=== PATIENT | female | born 1995 | race Caucasian/White ===

== ENCOUNTER 2020-01-27 13:18 | Emergency (ER) | payer BC ==
[2020-01-27 14:15] LABS: Bilirubin Negative (Negative); Blood, Urine Trace (Negative); Clarity Turbid (Clear); Glucose, Urine (Dipstick) Normal (Negative); Leukocyte 25 Leu/uL (Negative); Nitrite Negative (Negative); Protein, Urine (Dipstick) 10 mg/dL (Neg-Trace); Urobilinogen Normal mg/dL (Less than 2)
[2020-01-27 14:16] LABS: Pregnancy Test - Urine (BHCG) Negative (Negative); Pregu Control Background? CLEAR/WHITE (CLR/WHITE); Pregu Control Bar Appear? YES (CONTROL BAR); Specific Gravity 1.023 (1.002-1.036)
[2020-01-27 14:23] LABS: Bacteria/HPF 2+ HPF (None Seen)
[2020-01-27 14:52] LABS: #Basophils 0.1 thou/uL (0.0-0.2); #Eosinphils 0.1 thou/uL (0.0-0.7); #Lymphocytes 2.2 thou/uL (1.20-3.40); #Monocytes 0.9 thou/uL (0.11-0.59); #Neutrophils 8.5 thou/uL (1.40-6.50); %Basophils 0.6 % (0.0-1.0); %Eosinophils 0.8 % (0.0-10.0); %Lymphocytes 18.9 % (21.0-51.0); %Monocytes 7.9 % (0.0-10.0); %Neutrophils 71.8 % (42.0-75.0); Hemoglobin 10.7 g/dL (12.0-16.0); Mean Corpuscular HGB CONC 34.3 g/dL (32.0-36.0); Mean Corpuscular Hemoglobin 30.3 pg (27.0-31.0); Mean Corpuscular Volume 88.2 fL (78.0-98.0); Mean Platelet Volume 8.7 fL (7.4-10.4); Platelet Count 271 thou/uL (130-400); RBC Distribution Width 11.1 % (11.5-14.5); Red Blood Cell (RBC) Count 3.53 mill/uL (4.20-5.40); White Blood Cell (WBC) Count 11.9 thou/uL (4.8-10.8)
--- NOTE | 2020-01-27 14:56 | CT ---
EXAM: CT ABDOMEN AND PELVIS HISTORY: Trauma pain. COMPARISON: None. Procedure: Multiple contiguous axial images were obtained and a CT of the abdomen and pelvis with IV contrast. C oronal reformats were performed. FINDINGS: Lower Chest: within normal limits. Vessels: Normal caliber aorta Heart: Normal heart Abdomen: Portal vein:Patent Gallbladder: No calcified gallstones. Normal caliber wall. Liver: Diffuse hypoattenuation suggesting hepatic steatosis. Irregular hyperdense focus, measuring 4. 4 x 3.0 cm, involving the right hepatic lobe may represent a focal area of fatty sparing versus vascular lesion. Pancreas: within normal limits. Spleen: within normal limits. Adrenals: within normal limits. Kidneys: Symmetric enhancement. No obstructive uropathy. Peritoneum: No ascites or free air, no fluid collection. Bowel: Limited evaluation due to the lack of oral contrast administration. No evidence of bowel obstr uction. Ileocecal junction is unremarkable. Normal caliber appendix. Scattered fecal material in a nondistended, nondilated colon. Mesentery and Retroperitoneum: There are few scattered nonspecific right lower quadrant mesenteric ly mph nodes. Largest lymph node measures approximately 1 cm in the craniocaudal dimension. Abdominal Wall: within normal limits. Pelvis: Reproductive Organs: Uterus and left adnexa are unremarkable. There is mixed attenuation in the right adnexa with evidence of complex fluid. Ovary is difficult to appreciate. Findings may be due to a rupture of a complex or hemorrhagic cyst. Correlate clinically. Pelvis: Complex free fluid in the pelvis is noted. No free air, mass or lymphadenopathy. Bladder: within normal limits. Bones: within normal limits. IMPRESSION: 4. Possible mildly reactive right lower quadrant mesenteric lymph nodes. Correlate for mesenteric lym phadenitis. 1. Nonspecific enhancing focus in the right hepatic lobe which may represent a vascular lesion. Opal r interrogation with nonemergent abdomen MRI. Diffuse hepatic steatosis. 2. Complex fluid in the right hemipelvis which may be of ovarian origin. Correlate for possible ruptu red complex or hemorrhagic cyst. 3. Normal caliber appendix.
[2020-01-27 15:02] LABS: ALT (SGPT) 185 U/L (8-55); AST (SGOT) 167 U/L (5-34); Albumin 4.5 g/dL (3.5-5.0); Alkaline Phosphatase 65 U/L (40-110); Anion Gap 17 mmol/L (10-20); BUN (Urea Nitrogen) 11 mg/dL (7.0-18.7); Bilirubin, Total 0.3 mg/dL (0.2-1.2); Calc. Creatinine Clearance 0 mL/min (70-130); Calcium 9.5 mg/dL (7.8-10.44); Carbon Dioxide 21 mmol/L (22-29); Chloride 103 mmol/L (98-107); Estimated GFR-MDRD Greater than 90; Globulin 3.1 g/dL (2.4-3.5); Glucose 108 mg/dL (70-105); Potassium 4.1 mmol/L (3.5-5.1); Protein, Total 7.6 g/dL (6.0-8.3); Sodium 137 mmol/L (136-145)
[2020-01-27] MEDS ORDERED: Iopamidol 370 76% 100 ML VIAL ONE (15:13)
--- NOTE | 2020-01-27 16:35 | ULT ---
Exam: Transabdominal and endovaginal pelvic ultrasound HISTORY:Abnormal abdomen CT there are complex fluid in the pelvis. Abdominal pain. COMPARISON:None Correlation: Abdomen pelvis CT 01/27/2020 TECHNIQUE: Transabdominal and endovaginal imaging of the pelvis is performed. Ovaries are interrogate d with grayscale, color flow, Doppler imaging and spectral wave form analysis FINDINGS: Uterus: No myometrial masses. Uterus measurin.0 x 2.7 x 3.8 cm. Endometrium: Homogeneous echotexture. Endometrium diameter: 0.4 cm. Free fluid: Free fluid in the cul-de-sac and right adnexa Right ovary: Hypoechoic focus with central anechoic echotexture, measuring 1.1 x 1.0 x 2.5 cm. Right ovary measurement: 4.4 x 2.5 x 2.2 cm Left ovary: Normal echotexture. Left ovary measurements: 2.4 x 1.4 x 1.5 cm Ovarian Doppler: There is vascular flow in the left ovary as well as along the peripheral soft tissue echotexture in t he right adnexa. No vascular flow in the central anechoic focus. IMPRESSION: 1. Complex fluid in the pelvis. 2. Presumed collapsed right ovarian cyst.
== END 2020-01-27 17:15 | disposition home or self-care (01) ==
LOC: ERS 13:18
DX: N83.201 Unspecified ovarian cyst, right side (principal); Z79.899 Other long term (current) drug therapy
CPT/HCPCS: 36415; 74177; 76856; 80053; 81003; 81015; 81025; 85025; 93005; 96372; J0500; Q9967